=== PATIENT | female | born 1945 | race Caucasian/White ===

== ENCOUNTER 2017-04-25 12:08 | Emergency (ER) | payer MEDICARE, OTHER ==
[~2017-04-25] VITALS: Ht 160 cm; Wt 119.7 kg
[~2017-04-25 12:08] MED LIST: ALLOPURINOL100 MG PO; AMARYL2 MG PO; ASPIR 8181 MG PO; FISH OIL 1,0001 EAC1 PO; GABAPENTIN100 MG PO; GLIMEPIRIDE1 MG PO; LASIX40 MG PO; LISINOPRIL-HCT1 EAC1 PO; METFORMIN HCL500 MG PO; METOPROLOL TAR100 MG PO; NEURONTIN300 MG PO; NORVASC5 MG PO; SYNTHROID150 MCG PO; WARFARIN SODIU7.5 MG PO
--- NOTE | 2017-04-25 14:15 | Diagnostic Imaging Report ---
Examination: CT head without contrast Clinical Indication: Fall. Head injury. Headache. Technique: Transaxial noncontrast images from the skull base through the vertex were obtained. Sagittal and coronal reformatted images were done. Comparison: The images of a prior head CT performed October 01, 2012 are unavailable at this time, but the report is available for review. Findings: Scalp: No abnormalities. Bones: Intact. No fractures. No blastic or lytic lesions. Brain sulci: Appropriate for patient's age. Ventricles: Normal in size and configuration. No hydrocephalus. . Extra-axial space: No abnormalities. Parenchyma: There are subtle confluent areas of low-attenuation within subcortical and periventricular white matter, nonspecific, but could represent microvascular ischemic disease. No masses, hemorrhage, or acute or chronic cortical based vascular insults. Suprasellar region: No abnormalities. Craniocervical junction: The foramen magnum is patent. No Chiari one malformation. Incidental findings: Atherosclerotic calcification of the cavernous and supraclinoid internal carotid arteries. Impression: 1. No acute intracranial abnormality. 2. New mild chronic microvascular ischemic change when compared to prior head CT report performed October 01, 2012. The images of the prior exam are in accessible at this time. Signed by: Dr. Dorothy Mary M.D. on 04/25/2017 2:12 PM
--- NOTE | 2017-04-25 14:35 | Diagnostic Imaging Report ---
Examination: CT CERVICAL SPINE WITHOUT CONTRAST HISTORY:Fall. Neck pain. COMPARISON:None. TECHNIQUE: Multidetector helical axial images were obtained without contrast from the foramen magnum to T1. Coronal and sagittal reformatted images were done. Bone and soft tissue windows were evaluated. FINDINGS: Alignment:Normal alignment and lordosis. Vertebrae: Normal height and density. No acute fracture, infection or neoplasm. Diffuse osseous demineralization. Disc space heights: Normal height. Caliber of spinal canal: Developmentally normal. Posterior fossa and craniocervical junction: Foramen magnum patent. No Chiari 1 malformation. Soft tissues: No abnormality. Degenerative changes: Severe joint space narrowing at C1-C2. C5-C6: Diffuse disc osteophyte complex and bilateral uncovertebral arthropathy result in severe bilateral neural foraminal narrowing. No canal stenosis. C6-C7: Diffuse disc osteophyte complex and bilateral uncovertebral arthropathy result in mild bilateral foraminal narrowing. No canal stenosis. C7-T1: Bilateral uncovertebral arthropathy result in moderate bilateral neural foraminal narrowing. No canal stenosis. The remaining cervical levels demonstrate no disc bulge/ herniation or foraminal or canal stenosis. IMPRESSION: 1. No acute fracture. 2. Osseous demineralization. 3. Degenerative changes from C5-C6 through C7-T1 without canal stenosis. Signed by: Dr. Dorothy Mary M.D. on 04/25/2017 2:32 PM
[2017-04-25 15:11] VITALS: BP 172/77
== END 2017-04-25 15:33 | disposition home or self-care (01) ==
LOC: ER 12:08
DX: S16.1XXA Strain of muscle, fascia and tendon at neck level, initial encounter (principal); S00.03XA Contusion of scalp, initial encounter; I10 Essential (primary) hypertension; E11.9 Type 2 diabetes mellitus without complications; W01.0XXA Fall on same level from slipping, tripping and stumbling without subsequent striking against object, initial encounter; Y92.009 Unspecified place in unspecified non-institutional (private) residence as the place of occurrence of the external cause
CPT/HCPCS: 70450; 72125; 99283

== ENCOUNTER 2020-07-08 19:24 | Emergency (ER) | payer MEDICARE ==
[~2020-07-08] VITALS: Ht 160 cm; Wt 90.7 kg
[2020-07-08] MEDS ORDERED: MINERAL OIL 132 ML BTL PR ONE (20:45)
[2020-07-08] MEDS ORDERED: CITRATE OF MAGNESIA 300ML BOTTLE PO ONE (20:45)
[2020-07-08] MEDS ORDERED: COLACE100 MG PO (21:50)
[2020-07-09 04:43] VITALS: BP 139/91
== END 2020-07-09 02:00 ==
LOC: ER 19:34
DX: K59.00 Constipation, unspecified (principal); Z95.810 Presence of automatic (implantable) cardiac defibrillator; I12.0 Hypertensive chronic kidney disease with stage 5 chronic kidney disease or end stage renal disease; E11.22 Type 2 diabetes mellitus with diabetic chronic kidney disease; N18.5 Chronic kidney disease, stage 5; Z99.2 Dependence on renal dialysis; E78.5 Hyperlipidemia, unspecified; E03.9 Hypothyroidism, unspecified; I25.10 Atherosclerotic heart disease of native coronary artery without angina pectoris; I48.91 Unspecified atrial fibrillation; I25.2 Old myocardial infarction
CPT/HCPCS: 74018; 99284

== ENCOUNTER 2021-02-28 15:31 | Emergency (ER) | payer MEDICARE ==
[~2021-02-28] VITALS: Ht 160 cm; Wt 90.7 kg
[~2021-02-28 15:31] MED LIST changes: +COLACE100 MG PO
[2021-02-28] MEDS ORDERED: CEFTRIAXONE 1 GM VIAL IV ONE (15:45)
[2021-02-28] MEDS ORDERED: CEFTRIAXONE 1 GM in SODIUM CHLORIDE 0.9% 50ML 50 ML IV ONE (15:45)
[2021-02-28] MEDS ORDERED: CEFTRIAXONE 1 GM VIAL ONE (15:59)
[2021-02-28] MEDS ORDERED: CEPHALEXIN500 MG PO (16:28)
[2021-02-28 16:52] LABS: BACTERIA,URINE FEW /HPF; CLARITY,URINE TURBID (CLEAR); COLOR,URINE YELLOW (YELLOW); EPITHELIAL CELLS,URINE RARE /LPF; KETONES,URINE NEGATIVE (NEGATIVE); LEUKOCYTE ESTERASE ,URINE LARGE (NEGATIVE); NITRITE,URINE NEGATIVE (NEGATIVE); PROTEIN,URINE DIPSTICK 2+ (NEGATIVE); URINE UROBILINOGEN 0.2 mg/dL (0.2 - 1); WBC,URINE (MAN) >50 /HPF (0-5)
[2021-02-28] MEDS ORDERED: CEFDINIR300 MG PO (17:50)
== END 2021-02-28 18:40 | disposition home or self-care (01) ==
LOC: ER 15:38
DX: N39.0 Urinary tract infection, site not specified (principal); E11.22 Type 2 diabetes mellitus with diabetic chronic kidney disease; I13.2 Hypertensive heart and chronic kidney disease with heart failure and with stage 5 chronic kidney disease, or end stage renal disease; N18.5 Chronic kidney disease, stage 5; I25.2 Old myocardial infarction; I48.91 Unspecified atrial fibrillation; E03.9 Hypothyroidism, unspecified; I25.10 Atherosclerotic heart disease of native coronary artery without angina pectoris; I49.5 Sick sinus syndrome; I50.9 Heart failure, unspecified; Z88.6 Allergy status to analgesic agent; Z88.4 Allergy status to anesthetic agent; Z88.1 Allergy status to other antibiotic agents; Z88.8 Allergy status to other drugs, medicaments and biological substances; Z99.2 Dependence on renal dialysis; Z79.82 Long term (current) use of aspirin; Z79.84 Long term (current) use of oral hypoglycemic drugs; Z79.01 Long term (current) use of anticoagulants; Z79.899 Other long term (current) drug therapy; Z86.14 Personal history of Methicillin resistant Staphylococcus aureus infection
CPT/HCPCS: 81001; 87086; 87186; 99283; J0696

== ENCOUNTER 2021-10-12 16:18 | Emergency (ER) | payer MEDICARE ==
[~2021-10-12] VITALS: Ht 160 cm; Wt 90.7 kg
[~2021-10-12 16:18] MED LIST changes: +CEFDINIR300 MG PO; +CEPHALEXIN500 MG PO
[2021-10-12 17:15] LABS: BASOPHILS # (AUTO) 0.1 (0.0-0.1); BASOPHILS % 0.7 % (0.0-1.0); EOSINOPHILS # (AUTO) 0.6 (0.0-0.4); EOSINOPHILS % 7.7 % (0.0-6.0); HEMATOCRIT 36.4 % (34.2-44.1); HEMOGLOBIN 12.2 g/dL (12.0-16.0); MEAN CORPUSCULAR HEMOGLOBIN 31.6 pg (28-32); MEAN CORPUSCULAR HGB CONC 33.5 g/dL (31-35); MEAN CORPUSCULAR VOLUME 94.3 fL (81-99); MONOCYTES # (AUTO) 0.7 (0.2-0.8); NEUTROPHILS # (AUTO) 4.8 (2.1-6.9); NEUTROPHILS % 58.2 % (38.7-80.0); PLATELET COUNT 321 x10e3/uL (140-360); RED BLOOD COUNT 3.86 x10e6/uL (3.6-5.1); RED CELL DISTRIBUTION WIDTH 12.6 % (11.7-14.4)
[2021-10-12 17:19] LABS: CLARITY,URINE CLOUDY (CLEAR); COLOR,URINE YELLOW (YELLOW); LEUKOCYTE ESTERASE ,URINE LARGE (NEGATIVE); NITRITE,URINE NEGATIVE (NEGATIVE)
[2021-10-12 17:20] LABS: KETONES,URINE TRACE (NEGATIVE); PROTEIN,URINE DIPSTICK 1+ (NEGATIVE); URINE UROBILINOGEN 0.2 mg/dL (0.2 - 1)
[2021-10-12 17:26] LABS: INR 1.21; PROTHROMBIN TIME 16.4 seconds (11.9-14.5)
[2021-10-12 17:32] LABS: WBC,URINE (MAN) >50 /HPF (0-5)
[2021-10-12 17:34] LABS: BACTERIA,URINE MANY /HPF; EPITHELIAL CELLS,URINE FEW /LPF
[2021-10-12 17:35] LABS: AMORPHOUS SEDIMENT,URINE MODERATE (FEW)
[2021-10-12 17:37] LABS: ALANINE AMINOTRANSFERASE 55 IU/L (0-55); ALBUMIN 3.8 g/dL (3.5-5.0); ALKALINE PHOSPHATASE 66 IU/L (40-150); ANION GAP 16.2 mmol/L (8-16); BLOOD UREA NITROGEN 39 mg/dL (7-26); BUN/CREATININE RATIO 25 (6-25); CALCIUM 9.3 mg/dL (8.4-10.2); CARBON DIOXIDE 27 mmol/L (22-29); CHLORIDE 102 mmol/L (98-107); CREATININE, SERUM 1.56 mg/dL (0.57-1.11); GLUCOSE 101 mg/dL (74-118); POTASSIUM 4.2 mmol/L (3.5-5.1); SODIUM 141 mmol/L (136-145)
[2021-10-12 20:24] VITALS: BP 140/89
== END 2021-10-12 20:45 | disposition other institution (70) ==
LOC: ER 16:42
DX: R29.810 Facial weakness (principal); R13.10 Dysphagia, unspecified; N39.0 Urinary tract infection, site not specified; I48.91 Unspecified atrial fibrillation; R94.31 Abnormal electrocardiogram [ECG] [EKG]
CPT/HCPCS: 0223U; 36415; 70450; 71045; 80053; 81001; 85025; 85610; 87086; 87186; 93005; 99284; J0696